=== PATIENT | female | born 1940 | race Caucasian/White ===

== ENCOUNTER 2024-03-15 07:19 | Emergency (ER) | payer OTHER ==
[~2024-03-15] VITALS: Ht 165.1 cm; Wt 64.2 kg
[~2024-03-15 07:19] MED LIST: ACET500T58 PO; LEVO750T8 PO
[2024-03-15 08:10] LABS: Basophils # (auto) 0 10 ^3/uL (0-0.2); Basophils % (auto) 0.6 % (0.0-2.0); Eosinophils # (auto) 0 10 ^3/uL (0-0.8); Eosinophils % (auto) 0.5 % (0.0-7.0); Hematocrit 44.7 % (36.0-46.0); Hemoglobin 14.5 g/dL (12.2-16.2); Lymphocytes # (auto) 1.7 10 ^3/uL (0.4-5.4); Lymphocytes % (auto) 20.8 % (10.0-50.0); Mean Corpuscular Volume 88.4 fL (80.0-100.0); Monocytes # (auto) 0.6 10 ^3/uL (0-1.3); Monocytes % (auto) 6.9 % (0.0-12.0); Neutrophils # (auto) 5.8 10 ^3/uL (1.6-8.6); Neutrophils % (auto) 71.2 % (37.0-80.0); Nucleated Red Blood Cells % 0.1 %; Red Blood Cells 5.05 10^6/uL (4.0-5.20); White Blood Cell 8.2 10^3/uL (4.4-10.8)
[2024-03-15 08:11] LABS: Mean Corpuscular Hemoglobin 28.8 pg (28.0-32.0); Mean Corpuscular Hgb Conc. 32.5 g/dL (32.0-36.0); Red Cell Distribution Width 13.8 % (11.8-14.3)
[2024-03-15] MEDS: ONDANSETRON ODT 4 MG TAB PO ONE (08:11)
[2024-03-15 08:25] LABS: Alanine Aminotransferase 15 U/L (7-40); Albumin 4.7 g/dL (3.2-4.8); Alkaline Phosphatase 85 U/L (46-116); Anion Gap 7 (5-15); Aspartate Aminotransferase 26 U/L (13-40); BUN/Creatinine Ratio 8.8 (10.0-20.0); Bilirubin, Total 0.8 mg/dL (0.2-1.0); Blood Urea Nitrogen 7 mg/dL (9-23); Calcium 10.1 mg/dL (8.5-10.1); Carbon Dioxide 27 mmol/L (20-30); Chloride 103 mmol/L (98-107); Glucose 133 mg/dL (74-106); Sodium 137 mmol/L (136-145); Total Protein 7.5 g/dL (5.7-8.2)
[2024-03-15] MEDS ORDERED: IOHEXOL 300 MG/ML 100ML BOTTLE IJ ONE (08:47)
[2024-03-15 08:50] LABS: Lipase 45 U/L (12-53)
[2024-03-15 09:15] VITALS: PULSE 71; RESP 18; O2SAT 93
[2024-03-15 09:19] VITALS: TEMP 98.4
[2024-03-15 10:00] VITALS: BP 164/48; PULSE 65; RESP 16; O2SAT 93
[2024-03-15 11:00] LABS: Urine Bacteria None Seen /hpf (None Seen)
[2024-03-15 11:08] LABS: Urine Blood Negative /uL (Negative); Urine Clarity Clear (Clear); Urine Color Light-Yellow (Yellow); Urine Protein, UAD TRACE (Negative); Urine Urobilinogen Normal (Negative); Urine WBC 8 /hpf (0 - 5)
[2024-03-15 11:17] LABS: Urine Specific Gravity 1.0355 (1.001-1.035)
[2024-03-15] MEDS ORDERED: DICY10CA PO (11:24)
[2024-03-15] MEDS ORDERED: ZOFR4T PO (11:24)
[2024-03-15] MEDS ORDERED: DOXY1CAP57 PO (11:24)
== END 2024-03-15 12:12 | disposition home or self-care (01) ==
LOC: ER 07:19
DX: K62.89 Other specified diseases of anus and rectum (principal); R10.13 Epigastric pain; I10 Essential (primary) hypertension; Z88.8 Allergy status to other drugs, medicaments and biological substances; Z79.899 Other long term (current) drug therapy
CPT/HCPCS: 36415; 74177; 80053; 81001; 83605; 83690; 83735; 85025; 93005; 99285; Q0162; Q9967

== ENCOUNTER → 2024-03-19 | Outpatient (CLI) | payer OTHER ==
[~2024-03-19] MED LIST changes: +DICY10CA PO; +DOXY1CAP57 PO; +ZOFR4T PO
[2024-03-19 07:54] LABS: Urine Bacteria None Seen /hpf (None Seen)
[2024-03-19 08:05] LABS: Basophils # (auto) 0 10 ^3/uL (0-0.2); Basophils % (auto) 0.6 % (0.0-2.0); Eosinophils # (auto) 0.1 10 ^3/uL (0-0.8); Eosinophils % (auto) 0.9 % (0.0-7.0); Hematocrit 41.8 % (36.0-46.0); Lymphocytes # (auto) 1.4 10 ^3/uL (0.4-5.4); Lymphocytes % (auto) 23.4 % (10.0-50.0); Mean Corpuscular Hemoglobin 29.6 pg (28.0-32.0); Mean Corpuscular Hgb Conc. 33.5 g/dL (32.0-36.0); Mean Corpuscular Volume 88.3 fL (80.0-100.0); Monocytes # (auto) 0.6 10 ^3/uL (0-1.3); Monocytes % (auto) 9.3 % (0.0-12.0); Neutrophils % (auto) 65.8 % (37.0-80.0); Nucleated Red Blood Cells % 0.1 %; Red Blood Cells 4.74 10^6/uL (4.0-5.20); Red Cell Distribution Width 13.8 % (11.8-14.3); White Blood Cell 6.1 10^3/uL (4.4-10.8)
[2024-03-19 08:08] LABS: Urine Blood Negative /uL (Negative); Urine Clarity Clear (Clear); Urine Color Colorless (Yellow); Urine Protein, UAD Negative (Negative); Urine Specific Gravity 1.005 (1.001-1.035); Urine Urobilinogen Normal (Negative); Urine WBC <1 /hpf (0 - 5)
[2024-03-19 08:48] LABS: Alanine Aminotransferase 16 U/L (7-40); Albumin 4.5 g/dL (3.2-4.8); Alkaline Phosphatase 85 U/L (46-116); Anion Gap 6 (5-15); Aspartate Aminotransferase 22 U/L (13-40); BUN/Creatinine Ratio 7.7 (10.0-20.0); Blood Urea Nitrogen 6 mg/dL (9-23); Carbon Dioxide 27 mmol/L (20-30); Chloride 102 mmol/L (98-107); Cholesterol 174 mg/dL (< 200); Glucose 112 mg/dL (74-106); LDL Cholesterol 91 mg/dL (< 100); Potassium 4.2 mmol/L (3.5-5.1); Sodium 135 mmol/L (136-145); Triglycerides 115 mg/dL (< 150)
[2024-03-19 08:49] LABS: Bilirubin, Total 0.8 mg/dL (0.2-1.0); HDL Cholesterol 66 mg/dL (40-59)
[2024-03-19 08:57] LABS: Folate (Folic Acid) > 24.00 ng/mL (>5.38)
[2024-03-19 09:12] LABS: Magnesium 2.2 mg/dL (1.6-2.6)
== END | disposition home or self-care (01) ==
LOC: LAB 07:41
PROVIDERS: ATTEND Internal Medicine
DX: E55.9 Vitamin D deficiency, unspecified (principal); E79.0 Hyperuricemia without signs of inflammatory arthritis and tophaceous disease; R82.79 Other abnormal findings on microbiological examination of urine; R82.90 Unspecified abnormal findings in urine; D51.9 Vitamin B12 deficiency anemia, unspecified; R73.09 Other abnormal glucose; R94.6 Abnormal results of thyroid function studies; R94.4 Abnormal results of kidney function studies; R68.89 Other general symptoms and signs; R78.89 Finding of other specified substances, not normally found in blood
CPT/HCPCS: 36415; 80053; 80061; 81001; 82306; 82607; 82746; 83036; 83735; 84443; 84550; 85025; 87086

== ENCOUNTER → 2024-03-26 | Outpatient (CLI) | payer OTHER | END | disposition home or self-care (01) | LOC: LAB 12:14 | PROVIDERS: ATTEND Internal Medicine | DX: Z12.11 Encounter for screening for malignant neoplasm of colon (principal); E79.0 Hyperuricemia without signs of inflammatory arthritis and tophaceous disease; D51.9 Vitamin B12 deficiency anemia, unspecified; R82.90 Unspecified abnormal findings in urine; R82.79 Other abnormal findings on microbiological examination of urine; R94.6 Abnormal results of thyroid function studies; R73.09 Other abnormal glucose | CPT/HCPCS: 82270 ==

== ENCOUNTER 2024-07-05 16:00 | Inpatient (IN) | payer OTHER ==
[~2024-07-05] VITALS: Ht 165.1 cm; Wt 67.7 kg
[2024-07-05 17:11] LABS: Basophils # (auto) 0 10 ^3/uL (0-0.2); Basophils % (auto) 0.4 % (0.0-2.0); Eosinophils # (auto) 0 10 ^3/uL (0-0.8); Eosinophils % (auto) 0.1 % (0.0-7.0); Hematocrit 40.3 % (36.0-46.0); Hemoglobin 13.5 g/dL (12.2-16.2); Lymphocytes # (auto) 1.6 10 ^3/uL (0.4-5.4); Mean Corpuscular Hemoglobin 29.4 pg (28.0-32.0); Mean Corpuscular Hgb Conc. 33.4 g/dL (32.0-36.0); Mean Corpuscular Volume 88.1 fL (80.0-100.0); Monocytes # (auto) 0.6 10 ^3/uL (0-1.3); Monocytes % (auto) 7.3 % (0.0-12.0); Neutrophils # (auto) 5.9 10 ^3/uL (1.6-8.6); Neutrophils % (auto) 72.2 % (37.0-80.0); Platelet Count (auto) 263 10^3/uL (140-450); Red Blood Cells 4.57 10^6/uL (4.0-5.20); Red Cell Distribution Width 14.9 % (11.8-14.3); White Blood Cell 8.1 10^3/uL (4.4-10.8)
[2024-07-05] MEDS: MORPHINE SULFATE 4 MG/ML SYR/VIAL IV ONE (17:25)
[2024-07-05] MEDS: ONDANSETRON HCL 4 MG/2 ML VIAL IV ONE (17:25)
[2024-07-05 17:32] LABS: Alanine Aminotransferase 15 U/L (7-40); Alkaline Phosphatase 67 U/L (46-116); Anion Gap 7 (5-15); Aspartate Aminotransferase 23 U/L (13-40); BUN/Creatinine Ratio 8.1 (10.0-20.0); Blood Urea Nitrogen 6 mg/dL (9-23); Calcium 9.3 mg/dL (8.7-10.4); Carbon Dioxide 21 mmol/L (20-30); Chloride 100 mmol/L (98-107); Glucose 134 mg/dL (74-106); Potassium 3.8 mmol/L (3.5-5.1); Sodium 128 mmol/L (136-145)
[2024-07-05 17:33] LABS: Albumin 4.2 g/dL (3.2-4.8); Bilirubin, Total 0.7 mg/dL (0.2-1.0); Total Protein 6.8 g/dL (5.7-8.2)
[2024-07-05] MEDS: IOHEXOL 300 MG/ML 100ML BOTTLE IJ ONE (18:14)
[2024-07-05 18:50] VITALS: PULSE 77; RESP 18; O2SAT 98
[2024-07-05 19:30] VITALS: PULSE 78; RESP 18
[2024-07-05] MEDS: SODIUM CHLORIDE 0.9% 1,000 ML IV ONE (20:04)
[2024-07-05 20:42] LABS: Urine Bacteria None Seen /hpf (None Seen)
[2024-07-05 21:46] LABS: Urine Blood Negative /uL (Negative); Urine Clarity Clear (Clear); Urine Color Yellow (Yellow); Urine Protein, UAD Negative (Negative); Urine Specific Gravity 1.043 (1.001-1.035); Urine Urobilinogen Normal (Negative); Urine WBC <1 /hpf (0 - 5); Urine pH 6.5 (5.0-9.0)
[2024-07-05] MEDS ORDERED: ACETAMINOPHEN 325 MG TAB PO PRN (23:00)
[2024-07-05] MEDS ORDERED: DOCUSATE SOD 100 MG CAP PO PRN (23:00)
[2024-07-05] MEDS: SODIUM CHLORIDE 0.9% 1,000 ML IV SCH (23:02)
[2024-07-05] MEDS ORDERED: NITROGLYCERIN 0.4 MG SL TAB SL PRN (23:45)
[2024-07-06] VITALS (10 sets, daily range): BP systolic 110–185; BP diastolic 42–89; PULSE 75–92; RESP 16–21; TEMP 97.7–98.7; O2SAT 91–96
[2024-07-06] MEDS: HYDROcodone-ACET 5/325MG TAB PO PRN (00:23)
[2024-07-06] MEDS: ONDANSETRON HCL 4 MG/2 ML VIAL IV PRN (00:23)
[2024-07-06] MEDS: hydrALAZINE HCL 20 MG/ML VL IV PRN (00:36)
[2024-07-06] MEDS ORDERED: ESZO1TAB9 PO (03:10)
[2024-07-06] MEDS: MORPHINE SULFATE INJ 2 MG/ml SYRG IV PRN ×2 (03:40)
[2024-07-06 06:02] LABS: Basophils # (auto) 0 10 ^3/uL (0-0.2); Basophils % (auto) 0.4 % (0.0-2.0); Eosinophils # (auto) 0 10 ^3/uL (0-0.8); Eosinophils % (auto) 0.1 % (0.0-7.0); Hemoglobin 13.5 g/dL (12.2-16.2); Lymphocytes # (auto) 1.3 10 ^3/uL (0.4-5.4); Lymphocytes % (auto) 14.1 % (10.0-50.0); Mean Corpuscular Hemoglobin 30.1 pg (28.0-32.0); Mean Corpuscular Hgb Conc. 34.7 g/dL (32.0-36.0); Mean Corpuscular Volume 86.6 fL (80.0-100.0); Monocytes # (auto) 0.7 10 ^3/uL (0-1.3); Neutrophils # (auto) 7.4 10 ^3/uL (1.6-8.6); Neutrophils % (auto) 78.4 % (37.0-80.0); Platelet Count (auto) 249 10^3/uL (140-450); Red Cell Distribution Width 14.5 % (11.8-14.3); White Blood Cell 9.4 10^3/uL (4.4-10.8)
[2024-07-06 06:22] LABS: Alanine Aminotransferase 15 U/L (7-40); Alkaline Phosphatase 62 U/L (46-116); Anion Gap 7 (5-15); Aspartate Aminotransferase 22 U/L (13-40); Bilirubin, Total 1.1 mg/dL (0.2-1.0); Calcium 8.8 mg/dL (8.7-10.4); Carbon Dioxide 21 mmol/L (20-30); Chloride 98 mmol/L (98-107); Glucose 118 mg/dL (74-106); Potassium 3.5 mmol/L (3.5-5.1); Sodium 126 mmol/L (136-145); Total Protein 6.5 g/dL (5.7-8.2)
[2024-07-06 06:32] LABS: BUN/Creatinine Ratio 8.5 (10.0-20.0); Blood Urea Nitrogen < 5 mg/dL (9-23)
[2024-07-06 07:45] LABS: Lipase 31 U/L (12-53)
[2024-07-06 08:13] LABS: Sodium Urine 40 mmol/L (40-220)
[2024-07-06 08:20] LABS: Amphetamine Screen, Urine Neg (NEGATIVE); Barbiturate Scree,Urine Neg (NEGATIVE); Benzodiazephine Screen, Urine Neg (NEGATIVE); Cannabinoid Screen, Urine Neg (NEGATIVE); Cocaine Screen, Urine Neg (NEGATIVE); Opiate Scree,Urine Pos (NEGATIVE); Phencyclidine Screen, Urine Neg (NEGATIVE)
[2024-07-06] MEDS: amLODIPine BESYLATE 5 MG TAB PO SCH (08:29)
[2024-07-06] MEDS: HYDROcodone-ACET 7.5/325MG TAB PO PRN (13:11)
[2024-07-06] MEDS ORDERED: HYDR-4069 PO (14:27)
[2024-07-06] MEDS ORDERED: ENOXAPARIN SOD 40 MG/0.4 ML SYRINGE SC ONE (17:15)
[2024-07-07 00:59] VITALS: BP 151/51; PULSE 71; RESP 18; TEMP 98.6; O2SAT 94
[2024-07-07 05:00] VITALS: BP 163/52; PULSE 85; RESP 18; TEMP 97.9; O2SAT 95
[2024-07-07 06:28] LABS: Basophils # (auto) 0 10 ^3/uL (0-0.2); Basophils % (auto) 0.4 % (0.0-2.0); Eosinophils # (auto) 0 10 ^3/uL (0-0.8); Eosinophils % (auto) 0.4 % (0.0-7.0); Hematocrit 40.1 % (36.0-46.0); Lymphocytes # (auto) 1.5 10 ^3/uL (0.4-5.4); Lymphocytes % (auto) 17.2 % (10.0-50.0); Mean Corpuscular Hemoglobin 30.5 pg (28.0-32.0); Mean Corpuscular Hgb Conc. 34.9 g/dL (32.0-36.0); Mean Corpuscular Volume 87.4 fL (80.0-100.0); Monocytes % (auto) 10.9 % (0.0-12.0); Neutrophils # (auto) 6.3 10 ^3/uL (1.6-8.6); Neutrophils % (auto) 71.1 % (37.0-80.0); Platelet Count (auto) 243 10^3/uL (140-450); Red Blood Cells 4.59 10^6/uL (4.0-5.20); Red Cell Distribution Width 14.5 % (11.8-14.3); White Blood Cell 8.8 10^3/uL (4.4-10.8)
[2024-07-07 06:40] LABS: Anion Gap 7 (5-15); Carbon Dioxide 23 mmol/L (20-30); Chloride 104 mmol/L (98-107); Potassium 3.5 mmol/L (3.5-5.1)
[2024-07-07 06:41] LABS: Calcium 9.2 mg/dL (8.7-10.4)
[2024-07-07 06:46] LABS: BUN/Creatinine Ratio 9.8 (10.0-20.0); Blood Urea Nitrogen 6 mg/dL (9-23); Glucose 103 mg/dL (74-106)
[2024-07-07 06:51] LABS: Sodium 134 mmol/L (136-145)
[2024-07-07 08:10] VITALS: PULSE 73; RESP 17; O2SAT 94
[2024-07-07] MEDS: ENOXAPARIN SOD 40 MG/0.4 ML SYRINGE SC SCH (08:30)
[2024-07-07 08:33] VITALS: BP 171/58; PULSE 77; RESP 20; TEMP 97.9; O2SAT 90
[2024-07-07] MEDS ORDERED: LISINOPRIL 5 MG TAB PO SCH (10:00)
[2024-07-07] MEDS ORDERED: LEVO750T40 PO (12:24)
[2024-07-07] MEDS ORDERED: LISI10TA34 PO (12:24)
[2024-07-07] MEDS ORDERED: MET500T PO (12:24)
[2024-07-07] MEDS ORDERED: AMLO1TAB22 PO (12:24)
[2024-07-07 12:29] VITALS: BP 181/68; PULSE 88; RESP 20; TEMP 97.8; O2SAT 92
[2024-07-07 13:40] VITALS: BP 181/68; PULSE 88; RESP 20; TEMP 97.8; O2SAT 92
== END 2024-07-07 14:27 | disposition home or self-care (01) | DRG 394 ==
LOC: ER 16:00 → OVERFLOW 23:34 → TELE 07-06 01:07 → TELE-CENTR 07-06 02:39
PROVIDERS: ATTEND Internal Medicine
DX: K55.9 Vascular disorder of intestine, unspecified (principal); E87.1 Hypo-osmolality and hyponatremia; I71.43 Infrarenal abdominal aortic aneurysm, without rupture; I16.0 Hypertensive urgency; R73.9 Hyperglycemia, unspecified; E86.1 Hypovolemia; Z79.899 Other long term (current) drug therapy
CPT/HCPCS: 36415; 74177; 80048; 80053; 80307; 81001; 83605; 83690; 83880; 83930; 83935; 84300; 85025; 93306; G0378; J2405

== ENCOUNTER 2024-07-19 10:01 | Day surgery (SDC) | payer OTHER ==
[2024-07-17 11:56] LABS: Basophils # (auto) 0 10 ^3/uL (0-0.2); Basophils % (auto) 0.6 % (0.0-2.0); Eosinophils # (auto) 0 10 ^3/uL (0-0.8); Eosinophils % (auto) 0.6 % (0.0-7.0); Hematocrit 39.9 % (36.0-46.0); Hemoglobin 13.6 g/dL (12.2-16.2); Lymphocytes # (auto) 1.2 10 ^3/uL (0.4-5.4); Lymphocytes % (auto) 17.7 % (10.0-50.0); Mean Corpuscular Volume 88.1 fL (80.0-100.0); Monocytes # (auto) 0.7 10 ^3/uL (0-1.3); Monocytes % (auto) 11.3 % (0.0-12.0); Neutrophils # (auto) 4.6 10 ^3/uL (1.6-8.6); Neutrophils % (auto) 69.8 % (37.0-80.0); Platelet Count (auto) 267 10^3/uL (140-450); Red Blood Cells 4.53 10^6/uL (4.0-5.20); Red Cell Distribution Width 14.8 % (11.8-14.3); White Blood Cell 6.6 10^3/uL (4.4-10.8)
[2024-07-17 12:19] LABS: Alanine Aminotransferase 33 U/L (7-40); Albumin 4.3 g/dL (3.2-4.8); Alkaline Phosphatase 64 U/L (46-116); Anion Gap 5 (5-15); Aspartate Aminotransferase 31 U/L (13-40); Blood Urea Nitrogen 9 mg/dL (9-23); Calcium 9.7 mg/dL (8.7-10.4); Carbon Dioxide 26 mmol/L (20-30); Chloride 102 mmol/L (98-107); Glucose 104 mg/dL (74-106); Potassium 4.7 mmol/L (3.5-5.1); Sodium 133 mmol/L (136-145)
[2024-07-17 12:20] LABS: Bilirubin, Total 0.6 mg/dL (0.2-1.0); Total Protein 6.8 g/dL (5.7-8.2)
[2024-07-17 12:36] LABS: INR 1.05 (0.9-1.15); Partial Thromboplastin Time 26.9 SEC (24.5-34.5); Prothrombin Time 11.3 sec (9.3-11.8)
[2024-07-18 09:44] LABS: Urine Bacteria None Seen /hpf (None Seen)
[2024-07-18 10:18] LABS: Urine Blood Negative /uL (Negative); Urine Clarity Clear (Clear); Urine Color Colorless (Yellow); Urine Protein, UAD Negative (Negative); Urine Specific Gravity 1.004 (1.001-1.035); Urine Urobilinogen Normal (Negative); Urine WBC 2 /hpf (0 - 5)
[~2024-07-19] VITALS: Ht 165.1 cm; Wt 61.7 kg
[~2024-07-19 10:01] MED LIST changes: +AMLO1TAB22 PO; -DOXY1CAP57 PO; +ESZO1TAB9 PO; -LEVO750T8 PO; +LISI10TA34 PO; +MET500T PO; +OMEP20TA PO; -ZOFR4T PO; +ZOLP10TA PO
[2024-07-19] MEDS ORDERED: ONDANSETRON HCL 4 MG/2 ML VIAL IV ONE (10:02)
[2024-07-19] MEDS ORDERED: PROPOFOL 10 MG/ML 20 ML IV ONE (10:02)
[2024-07-19] MEDS ORDERED: LIDOCAINE HCL 100 MG/5ML (2%) SYRG INJ IV ONE (11:24)
[2024-07-19 11:31] VITALS: PULSE 74; RESP 10; TEMP 97.8; O2SAT 100
[2024-07-19] MEDS ORDERED: hydrALAZINE HCL 20 MG/ML VL IV PRN (11:45)
[2024-07-19 12:07] VITALS: BP 150/54; PULSE 82; RESP 19; O2SAT 98
== END 2024-07-19 12:20 | disposition home or self-care (01) ==
LOC: GI 10:01
PROVIDERS: ATTEND Internal Medicine Gastroenterology
DX: R10.13 Epigastric pain (principal); K29.50 Unspecified chronic gastritis without bleeding; K44.9 Diaphragmatic hernia without obstruction or gangrene; K21.00 Gastro-esophageal reflux disease with esophagitis, without bleeding; Z88.8 Allergy status to other drugs, medicaments and biological substances; K31.7 Polyp of stomach and duodenum; I10 Essential (primary) hypertension; Z79.899 Other long term (current) drug therapy; Z98.890 Other specified postprocedural states; Z90.710 Acquired absence of both cervix and uterus; Z90.49 Acquired absence of other specified parts of digestive tract
CPT/HCPCS: 36415; 43239; 80053; 81001; 85025; 85610; 85730; 88305; 88312; 88342; J2405; J2704; J7030

== ENCOUNTER 2024-09-25 14:54 | Emergency (ER) | payer OTHER ==
[~2024-09-25] VITALS: Ht 167.6 cm; Wt 60.0 kg
[2024-09-25 15:50] VITALS: BP 150/71; PULSE 95; RESP 16; O2SAT 95
--- NOTE | 2024-09-25 16:26 | ED.PDOC ---
Jonna. trauma (HPI) HPI Comments 84 year old female presents to the ED with chief complaint of headache and neck pain s/p fall. Patient reports that on 08/24, she had accidentally tripped and fell backwards, hitting the back of her head on the tile floor in her home. Patient relays that since then, he has been experiencing pain to the back of his head along with neck pain. Patient states she did not tell her family to not worry them, but wishes to be checked out today due to her symptoms. Patient denies being on blood thinners. Patient denies any LOC, dizziness, N/V, chest pain, or SOB. Chief Complaint: Head Injury Time Seen by MD: 16:22 Primary Care Provider: unknown Reviewed notes: Nurses Notes, Medications, Allergies Allergies: Coded Allergies: Gabapentin (Verified Allergy, Unknown, 11/17/23) Home Meds Active Scripts Amlodipine Besylate (Amlodipine Besylate) 5 Mg Tab, 1 TAB PO DAILY for 30 Days, #30 TAB 5 Refills Prov:CATHERINE WILLIAMSON RESIDENT 07/07/24 Lisinopril (Lisinopril) 10 Mg Tab, 10 MG PO DAILY for 30 Days, #30 TAB Prov:CATHERINE WILLIAMSON RESIDENT 07/07/24 Metronidazole (Metronidazole) 500 Mg Tab, 500 MG PO TID for 10 Days, #30 TAB Prov:CATHERINE WILLIAMSON RESIDENT 07/07/24 Dicyclomine Hcl (BENTYL CAPSULE) 10 Mg Cp, 1 CAP PO Q6HR PRN, #20 CAP 0 Refills Prov:SHIVANI LAMAR MD 03/15/24 Acetaminophen (Acetaminophen) 500 Mg Tab, 500 MG PO Q4HP PRN, #30 TAB Prov:ANTONIO KOROMA 08/21/23 Reported Medications Omeprazole (Gnp Omeprazole) 20 Mg Tab, 20 MG PO AC, TAB 07/18/24 Zolpidem Tartrate (Ambien) 10 Mg Tab, 5 MG PO HS, TAB 07/18/24 Eszopiclone (Lunesta) 1 Mg Tab, 1 MG PO, TAB 07/06/24 Information Source: Patient Mode of Arrival: Ambulatory Severity: Moderate Timing: Weeks Duration: Since onset Prehospital treatment: None Location: Head, Neck Location of neck pain: (R) Medial, (L) Medial Location of laceration: None Mechanism: Fall Past Medical History PAST MEDICAL HISTORY: HTN Surgical History: Denies all surgeries DIRECTOR BUSINESS MANAGEMENT History: Denies all DIRECTOR BUSINESS MANAGEMENT Hx Family History Family History: Unknown Social History Smoker: Non-Smoker Alcohol: Denies ETOH Use Drugs: Denies Drug Use Lives In: Home Constitutional: denies: chills, diaphoresis, fatigue, fever, malaise, sweats, weakness, others EENTM: denies: blurred vision, double vision, ear bleeding, ear discharge, ear drainage, ear pain, ear ringing, eye pain, eye redness, hearing loss, mouth pain, mouth swelling, nasal discharge, nose bleeding, nose congestion, nose pain, photophobia, tearing, throat pain, throat swelling, voice changes, others Respiratory: denies: cough, hemoptysis, orthopnea, SOB at rest, shortness of breath, SOB with excertion, stridor, wheezing, others Cardiovascular: denies: chest pain, dizzy spells, diaphoresis, Dyspnea on exertion, edema, irregular heart beat, left arm pain, lightheadedness, palpitations, PND, syncope, others Gastrointestinal: denies: abdomen distended, abdominal pain, blood streaked bowels, constipated, diarrhea, dysphagia, difficulty swallowing, hematemesis, melena, nausea, poor appetite, poor fluid intake, rectal bleeding, rectal pain, vomiting, others Genitourinary: denies: abnormal vagina bleeding, burning, dyspareunia, dysuria, flank pain, frequency, hematuria, incontinence, pain, , vagina discharge, urgency, others Neurological: denies: dizziness, fainting, headache, left sided numbness, left sided weakness, numbness, paresthesia, pre-existing deficit, right sided numbnes s, right sided weakness, seizure, speech problems, tingling, tremors, weakness, others Musculoskeletal: reports: neck pain, others (Back of head pain); denies: back pain, gout, joint pain, joint swelling, muscle pain, muscle stiffness Integumetry: denies: bruises, change in color, change in hair/nails, dryness, laceration, lesions, lumps, rash, wounds, others Allergic/Immunocompromised: denies: Difficulty Healing, Frequent Infections, Hives, Itching, others Hematologic/Lymphatic: denies: anemia, blood clots, easy bleeding, easy bruising, swollen glands, others Endocrine: denies: excessive hunger, excessive sweating, excessive thirst, excessive urination, flushing, intolerance to cold, intolerance to heat, unexplained weight gain, unexplained weight loss, others Psychiatric: denies: anxiety, bipolar disorder, depression, hopeless, panic di sorder, schizophrenia, sleepless, suicidal, others All Other Systems: Reviewed and Negative Physical Exam General Appearance: No Apparent Distress, Normal HEENT: Normal ENT Inspection, Other (Mild tenderness to occipital scalp with no laceration or abrasion.) Neck: Full Range of Motion, Non-Tender, Normal, Normal Inspection Respiratory: Chest Non-Tender, Lungs Clear, No Accessory Muscle Use, No Respiratory Distress, Normal Breath Sounds Cardiovascular: No Edema, No JVD, No Murmur, No Gallop, Normal Peripheral Pulses, Regular Rate/Rhythm Breast Exam: Deferred Gastrointestinal: No Organomegaly, Non Tender, No Pulsatile Mass, Normal Bowel Sounds, Soft Genitalia: Deferred Pelvic: Deferred Rectal: Deferred Extremities: No calf tenderness, Normal capillary refill, Normal inspection, Normal range of motion, Non-tender, No pedal edema Musculoskeletal : Apperance: Normal Neurologic: Alert, health program manager II-XII nml as Tested, No Motor Deficits, Normal Affect, Normal Mood, No Sensory Deficits Cerebellar Function: Normal Reflexes: Normal Skin: Dry, Normal Color, Warm Lymphatic: No Adenopathy Was a procedure done? Was a procedure done?: No Differential Diagnosis Multiple Trauma: Closed Head Injury, Fractures, Spine Injury, Tracheal Injury X-Ray, Labs, Meds, VS Vital Signs Date Time Temp Pulse Resp B/P (MAP) Pulse Ox O2 Delivery O2 Flow Rate FiO2 09/25/24 15:50 98.3 95 16 150/71 (97) 95 X-Ray, Labs, Meds, VS Comment Imaging: X-rays and CT scans were reviewed and interpreted by this provider, imaging shows no fractures and no pathological disease. Pending radiology review. Laboratory: Labs reviewed and interpreted by this provider. No significant abnormalities noted. Patient has prior medical visits reviewed. Med reconciliation performed Vital signs reviewed Time of 1ST Reevaluation: 17:22 Reevaluation 1ST: Unchanged Patient Education/Counseling: Diagnosis, Treatment, Need For Follow Up (Recommend follow up with PCP for nodule as dictated in CT scan.) Family Education/Counseling: No Family Present Departure 1 Departure Time of Disposition: 17:40 Impression: Primary Impression: Closed head injury Qualified Codes: S09.90XA - Unspecified injury of head, initial encounter Additional Impressions: Post-concussion headache Thyroid nodule Disposition: HOME / SELF CARE / HOMELESS Condition: Fair Discharged With: Self Critical Care Note Critical Care Time?: No Stability Stability form required: No Heart Score Heart Score: Heart Score Response (Comments) Value History N/A 0 EKG N/A 0 Age N/A 0 Risk Factors N/A 0 Troponin N/A 0 Total 0 I personally scribed for JACQUES GOMEZ ([email or web address]) on 09/25/24 at 16:26. Electronically submitted by Estevan Saul ([email or web address]). JACQUES GOMEZ Sep 25, 2024 16:26
--- NOTE | 2024-09-25 17:26 | DVH ---
EXAM: CT HEAD WITHOUT CONTRAST HISTORY: HEAD INJURY/FALL COMPARISON: None TECHNIQUE: Axial images were obtained and reformatted in coronal and sagittal planes. All CT scans at this medical facility are performed using dose modulation techniques as appropriate t o a performed exam including the following: Automated exposure control was utilized; adjustment of th e MA and/or KV according to patient size; and use of iterative reconstruction technique. CT Dose: CTDI volume is 53.99 mGy. Dose-length product is 863.9 mGy*cm FINDINGS: Supratentorial Region: No evidence for large acute territorial ischemia. No intracranial hemorrhage is noted. Posterior Fossa: No acute abnormality. Brainstem: Unremarkable. Sellar/Suprasellar Region: Unremarkable. Ventricles, Cisterns, Sulci: Age-appropriate. Orbits: Unremarkable. Paranasal Sinuses: Unremarkable. Mastoid Air Cells: Unremarkable. Vasculature: Intracranial arterial calcified plaque formation noted. Bones/Soft Tissues: No acute abnormality. Other: None. IMPRESSION: 1. No acute intracranial process.
--- NOTE | 2024-09-25 17:31 | DVH ---
Procedure: CT CERVICAL WITHOUT CONTRAST 09/25/2024 04:31 PM Indication:HEAD INJURY/FALL. Comparison Study: None. Technique: Axial images were obtained and reformatted in coronal and sagittal planes. All CT scans at this medical facility are performed using dose modulation techniques as appropriate t o a performed exam including the following: Automated exposure control was utilized; adjustment of th e MA and/or KV according to patient size; and use of iterative reconstruction technique. CT Dose: CTDI volume is 15.93 mGy. Dose-length product is 400.32 mGy*cm FINDINGS: Bones: The vertebrae are normal in height. 2 mm degenerative grade 1 anterolisthesis of C3 on C4 and C4 on C5 noted . Lateral masses C1 and C2 are well aligned. The posterior facet joints are well alig devi. Narrowing of C3-C5 disc height. Discogenic endplate changes are seen at several levels. A 5 mm lucency noted in C6 vertebral body Soft tissues: Paraspinal and prevertebral soft tissues are within normal limits. Other: Emphysematous changes are seen in bilateral apices. Pulmonary opacities in the dependent port ions of the lungs that may represent atelectasis or developing pneumonia. Atherosclerotic calcificati on of the bilateral carotid bulbs noted. A 2 cm nodule seen in the upper pole of the left lobe of the thyroid. IMPRESSION: 1. Straightening of normal lordosis that could be positional, reflect muscle spasm or pain. Correlate clinically. 2. No acute osseous abnormality of the cervical spine. 3. Multilevel degenerative disc disease noted. 4. A 2 cm right thyroid lobe nodule. Recommend further evaluation by thyroid ultrasound on an electi ve basis. 5. Bilateral carotid atherosclerotic calcifications. 6. Emphysema and biapical pulmonary opacities most likely atelectasis. Developing pneumonia can not be ruled out. Recommend clinical and biochemical correlation.
== END 2024-09-25 20:25 | disposition left against medical advice (07) ==
LOC: ER 14:54
DX: S09.8XXA Other specified injuries of head, initial encounter (principal); G44.309 Post-traumatic headache, unspecified, not intractable; E04.1 Nontoxic single thyroid nodule; I10 Essential (primary) hypertension; Z79.899 Other long term (current) drug therapy; Z88.8 Allergy status to other drugs, medicaments and biological substances; W01.0XXA Fall on same level from slipping, tripping and stumbling without subsequent striking against object, initial encounter; Y93.89 Activity, other specified; Y92.89 Other specified places as the place of occurrence of the external cause; Y99.8 Other external cause status
CPT/HCPCS: 70450; 72125

== ENCOUNTER 2025-01-24 11:30 | Inpatient (IN) | payer OTHER ==
[~2025-01-24] VITALS: Ht 165.1 cm; Wt 59.7 kg
[2025-01-24] VITALS (7 sets, daily range): BP systolic 150; BP diastolic 48; PULSE 72–89; RESP 15–20; TEMP 98.1; O2SAT 91–96
--- NOTE | 2025-01-24 11:57 | ECG ---
[facility] Test Date: 2025-01-24 Test Time: 11:50:57 Pat Name: EDWARD CASTILLO Department: ER Room: [facility] Gender: F Fruit Packer Face [employer] Fill: COLTON : 1940 Requested By: BIRD PATEL Order Number: [id number] Reading MD: Luis Eduardo Enciso Measurements Intervals Leland Rate: 72 P: 48 GA: 153 QRS: 15 QRSD: 86 T: 57 QT: 400 QTc: 438 Interpretive Statements Sinus rhythm Atrial premature complexes Electronically Signed On 01-25-2025 19:16:05 PDT by Luis Eduardo Enciso Please click the below link to view image of tracing.
--- NOTE | 2025-01-24 12:24 | ED.PDOC ---
Musculoskeletal HPI Comments 84Y F with PMHx HTN, HLD, vertigo, diverticulitis, and colectomy (2021), presents to ED for chief complaint fall. Pt reports rt sided lateral chest/rib pain and rt inguinal and medial thigh pain. Pt states she fell last night after getting up too fast and landed on her right side on grass. Pt denies LOC, head injury or dizziness. Pt reports difficulty weight-bearing on the right lower extremity due to pain. Pt took a Tylenol-codeine medication this morning at 0730 but symptoms did not improve. No other symptoms reported. Chief Complaint: Fall Injury Time Seen by MD: 12:10 Primary Care Provider: unknown Reviewed Notes: Nurses Notes, Medications, Allergies Allergies: Coded Allergies: Gabapentin (Verified Allergy, Unknown, 11/17/23) Home Meds Active Scripts Amlodipine Besylate (Amlodipine Besylate) 5 Mg Tab, 1 TAB PO DAILY for 30 Days, #30 TAB 5 Refills Prov:CATHERINE WILLIAMSON RESIDENT 07/07/24 Lisinopril (Lisinopril) 10 Mg Tab, 10 MG PO DAILY for 30 Days, #30 TAB Prov:CATHERINE WILLIAMSON RESIDENT 07/07/24 Metronidazole (Metronidazole) 500 Mg Tab, 500 MG PO TID for 10 Days, #30 TAB Prov:CATHERINE WILLIAMSON RESIDENT 07/07/24 Dicyclomine Hcl (BENTYL CAPSULE) 10 Mg Cp, 1 CAP PO Q6HR PRN, #20 CAP 0 Refills Prov:SHIVANI LAMAR MD 03/15/24 Acetaminophen (Acetaminophen) 500 Mg Tab, 500 MG PO Q4HP PRN, #30 TAB Prov:ANTOINO KOROMA PAC 08/21/23 Reported Medications Omeprazole (Gnp Omeprazole) 20 Mg Tab, 20 MG PO AC, TAB 07/18/24 Zolpidem Tartrate (Ambien) 10 Mg Tab, 5 MG PO HS, TAB 07/18/24 Eszopiclone (Lunesta) 1 Mg Tab, 1 MG PO, TAB 07/06/24 Information Source: Patient, Relative (Child) Mode of Arrival: Wheelchair Location: Right Extremity Location: Chest, Groin, Thigh Timing: Days Prehospital treatment: None Severity: Moderate Able to Move Extremity: Yes Bear Weight: Limited Pain: Moderate Mechanism: Unknown Circumstances: Fall Onset of Symptoms: After Trauma Symptoms: Pain DVT Risk Factors: NONE Associated signs and symptoms: Other Past Medical History PAST MEDICAL HISTORY: High Lipids, HTN Past Medical History (Other): Diverticulitis Surgical History (Other): Colectomy 2021 CATEGORY DEVELOPMENT MANAGER History: Denies all CATEGORY DEVELOPMENT MANAGER Hx Family History Family History: Unknown Social History Smoker: Non-Smoker, Secondhand Alcohol: Denies ETOH Use Drugs: Denies Drug Use Lives In: Home Constitutional: denies: chills, diaphoresis, fatigue, fever, malaise, sweats, weakness, others EENTM: denies: blurred vision, double vision, ear bleeding, ear discharge, ear drainage, ear pain, ear ringing, eye pain, eye redness, hearing loss, mouth pain, mouth swelling, nasal discharge, nose bleeding, nose congestion, nose pain, photophobia, tearing, throat pain, throat swelling, voice changes, others Respiratory: denies: cough, hemoptysis, orthopnea, SOB at rest, shortness of breath, SOB with excertion, stridor, wheezing, others Cardiovascular: denies: chest pain, dizzy spells, diaphoresis, Dyspnea on exertion, edema, irregular heart beat, left arm pain, lightheadedness, palpitations, PND, syncope, others Gastrointestinal: denies: abdomen distended, abdominal pain, blood streaked bowels, constipated, diarrhea, dysphagia, difficulty swallowing, hematemesis, melena, nausea, poor appetite, poor fluid intake, rectal bleeding, rectal pain, vomiting, others Genitourinary: denies: abnormal vagina bleeding, burning, dyspareunia, dysuria, flank pain, frequency, hematuria, incontinence, pain, , vagina discharge, urgency, others Neurological: denies: dizziness, fainting, headache, left sided numbness, left sided weakness, numbness, paresthesia, pre-existing deficit, right sided numbness, right sided weakness, seizure, speech problems, tingling, tremors, weakness, others Musculoskeletal: reports: others (rt rib pain, rt inner thigh pain); denies: back pain, gout, joint pain, joint swelling, muscle pain, muscle stiffness, neck pain Integumetry: denies: bruises, change in color, change in hair/nails, dryness, laceration, lesions, lumps, rash, wounds, others Allergic/Immunocompromised: denies: Difficulty Healing, Frequent Infections, Hives, Itching, others Hematologic/Lymphatic: denies: anemia, blood clots, easy bleeding, easy bruis ing, swollen glands, others Endocrine: denies: excessive hunger, excessive sweating, excessive thirst, exc essive urination, flushing, intolerance to cold, intolerance to heat, unexplained weight gain, unexplained weight loss, others Psychiatric: denies: anxiety, bipolar disorder, depression, hopeless, panic disorder, schizophrenia, sleepless, suicidal, others All Other Systems: Reviewed and Negative Physical Exam General Appearance: No Apparent Distress HEENT: PERRL/EOMI Neck: Full Range of Motion, Non-Tender, Normal Inspection, Supple Respiratory: Lungs Clear, No Accessory Muscle Use, No Respiratory Distress, Normal Breath Sounds, Other (Right lateral chest wall tenderness to palpation. No crepitus or bruising.) Cardiovascular: No Edema, No JVD, Regular Rate/Rhythm Breast Exam: Deferred Gastrointestinal: Non Tender, Soft Genitalia: Deferred Pelvic: Deferred Rectal: Deferred Extremities: Normal inspection, No pedal edema, Tender (Right inguinal area and medial thigh tenderness to palpation) Neurologic: Alert (Oriented x4), Normal Affect, Normal Mood, Other (Moves all extremities. No gross focal deficit.) Cerebellar Function: NOT DONE Reflexes: NOT DONE Skin: Dry, Normal Color, Warm Lymphatic: NOT DONE Was a procedure done? Was a procedure done?: No EKG EKG : Comments Sinus rhythm, rate 72, normal intervals, normal axis, incomplete right bundle- branch block, PACs, nonspecific T change Differential Diagnosis EXT Differential Diagnosis: Sprain, Contusion, Strain Other Differential Diagnosis Chest wall contusion, rib fracture, pulmonary contusion, cardiac contusion, hip contusion, pelvic or hip fracture, femur fracture, muscle strain, sprain, or other soft tissue injury, among others X-Ray, Labs, Meds, VS Vital Signs Date Time Temp Pulse Resp B/P (MAP) Pulse Ox O2 Delivery O2 Flow Rate FiO2 01/24/25 14:21 98.2 75 16 122/48 (72) 95 98.2 01/24/25 14:21 75 16 95 Room Air 01/24/25 12:00 84 20 96 Room Air* 0 21 01/24/25 11:50 98.5 73 18 115/79 (91) 97 98.5 01/24/25 11:50 72 Lab Test 01/24/25 13:44 01/24/25 12:50 01/24/25 11:45 Range/Units Troponin I High Sensitivity 3 L 3 L </=34 ng/L White Blood Count 10.3 4.4-10.8 10^3/uL Red Blood Count 4.62 4.0-5.20 10^6/uL Hemoglobin 13.5 12.2-16.2 g/dL Hematocrit 40.1 36.0-46.0 % Mean Corpuscular Volume 86.8 80.0-100.0 fL Mean Corpuscular Hemoglobin 29.3 28.0-32.0 pg Mean Corpuscular Hemoglobin Concent 33.8 32.0-36.0 g/dL Red Cell Distribution Width 14.8 H 11.8-14.3 % Platelet Count 225 140-450 10^3/uL Mean Platelet Volume 8.3 6.9-10.8 fL Neutrophils (%) (Auto) 85.1 H 37.0-80.0 % Lymphocytes (%) (Auto) 7.6 L 10.0-50.0 % Monocytes (%) (Auto) 7.1 0.0-12.0 % Eosinophils (%) (Auto) 0.0 0.0-7.0 % Basophils (%) (Auto) 0.2 0.0-2.0 % Neutrophils # (Auto) 8.7 H 1.6-8.6 10 ^3/uL Lymphocytes # (Auto) 0.8 0.4-5.4 10 ^3/uL Monocytes # (Auto) 0.7 0-1.3 10 ^3/uL Eosinophils # (Auto) 0 0-0.8 10 ^3/uL Basophils # (Auto) 0 0-0.2 10 ^3/uL Nucleated Red Blood Cells 0.1 % Sodium Level 130 L 136-145 mmol/L Potassium Level 4.0 3.5-5.1 mmol/L Chloride Level 98 98-107 mmol/L Carbon Dioxide Level 25 20-31 mmol/L Anion Gap 7 5-15 Blood Urea Nitrogen 10 9-23 mg/dL Creatinine 0.70 0.550-1.02 mg/dL Glomerular Filtration Rate Calc 86 >90 mL/min BUN/Creatinine Ratio 14.3 10.0-20.0 Serum Glucose 124 H 74-106 mg/dL Calcium Level 9.8 8.7-10.4 mg/dL B-Type Natriuretic Peptide 87.26 0-100 pg/mL POC Glucose 140 H 70-106 mg/dl Current Medications Medications (Trade) Dose Ordered Sig/Thee Route Start Time Stop Time Status Last Admin Acetaminophen/ Hydrocodone Bitart ([place] 10/325MG Tab) 1 tab ONCE ONCE PO 01/24/25 12:15 01/24/25 12:16 DC 01/24/25 12:39 ORDERING PHYSICIAN: BIRD IVY MD PROCEDURE(s): RFEM - R FEMUR XRAY REASON: R medial thigh pain s/p fall ORDER NUMBER(s): [id number], ACCESSION NUMBER(s): [id number] CLINICAL INDICATION: R medial thigh pain s/p fall TECHNIQUE: 4 radiographic views of the right femur were obtained. Comparison: None FINDINGS/IMPRESSION: There is no evidence of acute fracture or dislocation. The visualized joint space is well maintained. The alignment is anatomical. There is no radiopaque foreign body. RING PHYSICIAN: BIRD IVY MD PROCEDURE(s): CX2CT - CHEST WITHOUT CONTRAST REASON: r chest wall pain s/p fall ORDER NUMBER(s): [id number], ACCESSION NUMBER(s): [id number] Procedure: CT CHEST WITHOUT CONTRAST Reason for study/Clinical History: r chest wall pain s/p fall Comparison Study: None available at time of dictation. TECHNIQUE: Multidetector CT of the chest was performed from the lung apices to the upper abdomen without the use of intravenous contract. Axial, coronal and sagittal multiplanar reformats were performed. Radiation Dose Information: CT Dose: CTDI volume is 6.57 mGy. Dose-length product is 266.01 mGy*cm The dose indicators for CT are the volume Computed Tomography (CT) Dose Index (CTDIvol) and the Dose Length Product (DLP), and are measured in units of mGy and mGy-cm, respectively. These indicators are not patient dose, but values generated from the CT scanner acquisition factors. The report includes radiation exposure data for exposures received during this examination. FINDINGS: Lower neck: Unremarkable. Lungs: No focal consolidation. No suspicious pulmonary nodule. Moderate centrilobular emphysema. Heart/Vascular Structures: Cardiomegaly. Coronary artery calcifications. Vascular calcifications of the aorta. Lymph Nodes: No adenopathy Pleura: No pleural effusion or significant pneumothorax. Musculoskeletal: Possible subtle nondisplaced fracture of the right anterior 3rd rib. Mildly displaced fracture of the right anterolateral 5th rib. Soft tissues: Normal. Upper abdomen: Post cholecystectomy. IMPRESSION: Possible subtle nondisplaced fracture of the right anterior 3rd rib. Mildly displaced fracture of the right anterolateral 5th rib. Radiation optimization: All CT scans at this facility use at least one of these dose optimization techniques: automated exposure control mA and/or kV adjustment per patient size (includes targeted exams where dose is matched to clinical indication) or iterative reconstruction. RING PHYSICIAN: BIRD IVY MD PROCEDURE(s): PL2CT - PELVIS WO CONTRAST REASON: r inguinal pain s/p fall ORDER NUMBER(s): [id number], ACCESSION NUMBER(s): [id number] EXAM: CT PELVIS WO CONTRAST INDICATION: r inguinal pain s/p fall EXAM DATE: 01/24/2025 12:19 PM COMPARISON: None TECHNIQUE: Multiple axial CT images of the pelvis were obtained using bone algorithm. Axial and coronal reformatting was done. Bone and soft tissue windows were reviewed. Radiation Dose Information: CT Dose: CTDI volume is 11.54 mGy. Dose-length product is 401.56 mGy*cm Findings: Lack of intravenous contrast limits evaluation of solid organs and vasculature. Minimally displaced fracture of the right superior pubic ramus. No evidence of dislocation, blastic, lytic, or osseous destructive lesions. Chronic fracture deformity of the left inferior pubic ramus. No superficial soft tissue abnormalities. The urinary bladder is well-distended and unremarkable. The distal ureters, uterus and bilateral adnexa are within normal limits. No dilatation of the visualized portion of the bowel. No intraluminal free air or free fluid. Impression: 1. Minimally displaced fracture of the right superior pubic ramus. X-Ray, Labs, Meds, VS Comment 84-year-old female with a history of hypertension, hyperlipidemia and diverticulitis brought in by family complaining of right-sided chest wall pain, right inguinal and right medial thigh pain status post fall last night Vitals unremarkable Exam remarkable for right-sided chest wall tenderness, right inguinal and medial thigh tenderness Rhythm strip independently interpreted by me: Sinus rhythm, rate 72, occasional PACs CT chest IMPRESSION: Possible subtle nondisplaced fracture of the right anterior 3rd rib. Mildly displaced fracture of the right anterolateral 5th rib. CT pelvis Impression: 1. Minimally displaced fracture of the right superior pubic ramus. Right femur x-rays FINDINGS/IMPRESSION: There is no evidence of acute fracture or dislocation. The visualized joint space is well maintained. The alignment is anatomical. There is no radiopaque foreign body. CBC unremarkable, metabolic panel remarkable for sodium 130, BNP and troponins negative, UA pending Patient treated with the following in the ED: [place] 10/325 mg p.o., 1 L 0.9 normal saline IV bolus On re-evaluation, patient states pain has improved. Vitals were stable. Plan is to admit the patient for pain control, orthopedic evaluation and electrolyte correction Time of 1ST Reevaluation: 12:40 Reevaluation 1ST: Unchanged Patient Education/Counseling: Diagnosis, Treatment Family Education/Counseling: Diagnosis, Treatment Departure 1 Departure Time of Disposition: 17:00 Impression: Primary Impression: Ribs, multiple fractures Qualified Codes: S22.41XA - Multiple fractures of ribs, right side, initial encounter for closed fracture Additional Impressions: Pubic ramus fracture Qualified Codes: S32.591A - Other specified fracture of right pubis, initial encounter for closed fracture Hyponatremia Disposition: ADMITTED INPATIENT Admit to: Med Surg Condition: Guarded Critical Care Note Critical Care Time?: No Stability Stability form required: No Heart Score Heart Score: Heart Score Response (Comments) Value History N/A 0 EKG N/A 0 Age N/A 0 Risk Factors N/A 0 Troponin N/A 0 Total 0 I personally scribed for BIRD IVY MD ([email or web address]) on 01/24/25 at 12:24. Electronically submitted by Jasmina Simpson ([email or web address]). I personally scribed for BIRD IVY MD ([email or web address]) on 01/24/25 at 13:16. Electronically submitted by Jasmina Simpson ([email or web address]). BIRD IVY MD Jan 24, 2025 12:24
[2025-01-24] MEDS: HYDROcodone-ACET 10/325MG TAB PO ONE (12:39)
--- NOTE | 2025-01-24 13:00 | DVH ---
CLINICAL INDICATION: R medial thigh pain s/p fall TECHNIQUE: 4 radiographic views of the right femur were obtained. Comparison: None FINDINGS/IMPRESSION: There is no evidence of acute fracture or dislocation. The visualized joint space is well maintained. The alignment is anatomical. There is no radiopaque foreign body.
--- NOTE | 2025-01-24 13:03 | DVH ---
Procedure: CT CHEST WITHOUT CONTRAST Reason for study/Clinical History: r chest wall pain s/p fall Comparison Study: None available at time of dictation. TECHNIQUE: Multidetector CT of the chest was performed from the lung apices to the upper abdomen with out the use of intravenous contract. Axial, coronal and sagittal multiplanar reformats were performed . Radiation Dose Information: CT Dose: CTDI volume is 6.57 mGy. Dose-length product is 266.01 mGy*cm The dose indicators for CT are the volume Computed Tomography (CT) Dose Index (CTDIvol) and the Dose Length Product (DLP), and are measured in units of mGy and mGy-cm, respectively. These indicators are not patient dose, but values generated from the CT scanner acquisition factors. The report includes radiation exposure data for exposures received during this examination. FINDINGS: Lower neck: Unremarkable. Lungs: No focal consolidation. No suspicious pulmonary nodule. Moderate centrilobular emphysema. Heart/Vascular Structures: Cardiomegaly. Coronary artery calcifications. Vascular calcifications of t he aorta. Lymph Nodes: No adenopathy Pleura: No pleural effusion or significant pneumothorax. Musculoskeletal: Possible subtle nondisplaced fracture of the right anterior 3rd rib. Mildly displace d fracture of the right anterolateral 5th rib. Soft tissues: Normal. Upper abdomen: Post cholecystectomy. IMPRESSION: Possible subtle nondisplaced fracture of the right anterior 3rd rib. Mildly displaced fracture of the right anterolateral 5th rib. Radiation optimization: All CT scans at this facility use at least one of these dose optimization gabe hniques: automated exposure control mA and/or kV adjustment per patient size (includes targeted exam s where dose is matched to clinical indication) or iterative reconstruction.
--- NOTE | 2025-01-24 13:06 | DVH ---
EXAM: CT PELVIS WO CONTRAST INDICATION: r inguinal pain s/p fall EXAM DATE: 01/24/2025 12:19 PM COMPARISON: None TECHNIQUE: Multiple axial CT images of the pelvis were obtained using bone algorithm. Axial and coron al reformatting was done. Bone and soft tissue windows were reviewed. Radiation Dose Information: CT Dose: CTDI volume is 11.54 mGy. Dose-length product is 401.56 mGy*cm Findings: Lack of intravenous contrast limits evaluation of solid organs and vasculature. Minimally displaced fracture of the right superior pubic ramus. No evidence of dislocation, blastic, lytic, or osseous destructive lesions. Chronic fracture deformit y of the left inferior pubic ramus. No superficial soft tissue abnormalities. The urinary bladder is well-distended and unremarkable. The distal ureters, uterus and bilateral adne xa are within normal limits. No dilatation of the visualized portion of the bowel. No intraluminal free air or free fluid. Impression: 1. Minimally displaced fracture of the right superior pubic ramus.
[2025-01-24 13:11] LABS: Basophils # (auto) 0 10 ^3/uL (0-0.2); Basophils % (auto) 0.2 % (0.0-2.0); Eosinophils # (auto) 0 10 ^3/uL (0-0.8); Hematocrit 40.1 % (36.0-46.0); Hemoglobin 13.5 g/dL (12.2-16.2); Lymphocytes # (auto) 0.8 10 ^3/uL (0.4-5.4); Lymphocytes % (auto) 7.6 % (10.0-50.0); Mean Corpuscular Hemoglobin 29.3 pg (28.0-32.0); Mean Corpuscular Hgb Conc. 33.8 g/dL (32.0-36.0); Mean Corpuscular Volume 86.8 fL (80.0-100.0); Monocytes # (auto) 0.7 10 ^3/uL (0-1.3); Monocytes % (auto) 7.1 % (0.0-12.0); Neutrophils # (auto) 8.7 10 ^3/uL (1.6-8.6); Neutrophils % (auto) 85.1 % (37.0-80.0); Nucleated Red Blood Cells % 0.1 %; Platelet Count (auto) 225 10^3/uL (140-450); Red Blood Cells 4.62 10^6/uL (4.0-5.20); Red Cell Distribution Width 14.8 % (11.8-14.3); White Blood Cell 10.3 10^3/uL (4.4-10.8)
[2025-01-24 13:14] LABS: Chloride 98 mmol/L (98-107)
[2025-01-24 13:15] LABS: Anion Gap 7 (5-15); Calcium 9.8 mg/dL (8.7-10.4); Carbon Dioxide 25 mmol/L (20-31)
[2025-01-24 13:16] LABS: Sodium 130 mmol/L (136-145)
[2025-01-24 13:20] LABS: BUN/Creatinine Ratio 14.3 (10.0-20.0); Blood Urea Nitrogen 10 mg/dL (9-23)
[2025-01-24 13:24] LABS: Glucose 124 mg/dL (74-106)
[2025-01-24] MEDS: SODIUM CHLORIDE 0.9% 1,000 ML IV ONE (17:15)
[2025-01-24] MEDS ORDERED: HYDROmorphone HCL 2 MG/ML VL/or syr IV PRN ×2 (19:15→20:30)
[2025-01-24] MEDS ORDERED: hydrALAZINE HCL 20 MG/ML VL IV PRN (19:15)
[2025-01-24] MEDS ORDERED: DOCUSATE SOD 100 MG CAP PO PRN (19:15)
[2025-01-24] MEDS ORDERED: LIDOCAINE 5% TOPICAL PATCH TOP PRN (19:15)
[2025-01-24] MEDS ORDERED: ACETAMINOPHEN 325 MG TAB PO PRN (19:15)
[2025-01-24] MEDS ORDERED: ONDANSETRON HCL 4 MG/2 ML VIAL IV PRN (19:15)
--- NOTE | 2025-01-24 19:20 | DVHHP2 ---
Admitting Diagnosis: Fall History of Present Illness 84Y F with PMHx HTN, HLD, vertigo, diverticulitis, and colectomy (2021), presents to ED for chief complaint fall. Pt reports rt sided lateral chest/rib pain and rt inguinal and medial thigh pain. Pt states she fell last night after getting up too fast and landed on her right side on grass. Pt denies LOC, head injury or dizziness. Pt reports difficulty weight-bearing on the right lower extremity due to pain. Pt took a Tylenol-codeine medication this morning at 0730 but symptoms did not improve. No other symptoms reported. PAST MEDICAL HISTORY: High Lipids, HTN Past Medical History (Other): Diverticulitis Surgical History (Other): Colectomy 2021 COLD HEADER History: Denies all COLD HEADER Hx Family History Family History: Unknown Social History Smoker: Non-Smoker, Secondhand Alcohol: Denies ETOH Use Drugs: Denies Drug Use Lives In: Home Patient Family History: Alzheimer's disease G8 MOTHER Chronic obstructive pulmonary disease G8 FATHER Allergies: Coded Allergies: Gabapentin (Verified Allergy, Unknown, 11/17/23) Home Meds Active Scripts Amlodipine Besylate (Amlodipine Besylate) 5 Mg Tab, 1 TAB PO DAILY for 30 Days, #30 TAB 5 Refills Prov:CATHERINE WILLIAMSON RESIDENT 07/07/24 Lisinopril (Lisinopril) 10 Mg Tab, 10 MG PO DAILY for 30 Days, #30 TAB Prov:VINNY WILLIAMSONE RESIDENT 07/07/24 Metronidazole (Metronidazole) 500 Mg Tab, 500 MG PO TID for 10 Days, #30 TAB Prov:[facility]IL[facility]NA [facility] 07/07/24 Dicyclomine Hcl (BENTYL CAPSULE) 10 Mg Cp, 1 CAP PO Q6HR PRN, #20 CAP 0 Refills Prov:SHIVANI LAMAR MD 03/15/24 Acetaminophen (Acetaminophen) 500 Mg Tab, 500 MG PO Q4HP PRN, #30 TAB Prov:ANTONIO KOROMA PAC 08/21/23 Reported Medications Omeprazole (Gnp Omeprazole) 20 Mg Tab, 20 MG PO AC, TAB 07/18/24 Zolpidem Tartrate (Ambien) 10 Mg Tab, 5 MG PO HS, TAB 07/18/24 Eszopiclone (Lunesta) 1 Mg Tab, 1 MG PO, TAB 07/06/24 Current Medications Current Medications Medications (Trade) Dose Ordered Sig/Thee Route PRN Reason Start Time Stop Time Status Last Admin Sodium Chloride (Saline Lock Ns) 10 ml Q8HR IV 01/24/25 22:00 UNV Docusate Sodium (Colace Capsule) 100 mg BIDPRN PRN PO FOR CONSTIPATION 01/24/25 19:15 UNV Acetaminophen (Tylenol Tablet) 650 mg Q6HP PRN PO PAIN SCALE 1-3 OR TEMP>100.4 01/24/25 19:15 UNV Acetaminophen/ Hydrocodone Bitart ([place] 5/325MG Tab) 1 tab Q4HP PRN PO MODERATE PAIN (4-6 PAIN SCALE) 01/24/25 19:15 UNV Hydromorphone HCl (Dilaudid Injection) 0.5 mg Q4HP PRN IV SEVERE PAIN (7-10 PAIN SCALE) 01/24/25 19:15 UNV Ondansetron HCl (Zofran) 4 mg Q4HP PRN IV NAUSEA / VOMITING 01/24/25 19:15 UNV Lidocaine (Lidoderm 5% Topical Patch) 1 patch DAILY PRN TOP right rib pain 01/24/25 19:15 UNV Enoxaparin Sodium (Lovenox) 40 mg DAILY SC 01/25/25 10:00 UNV Amlodipine Besylate (Norvasc Tablet) 5 mg DAILY PO 01/25/25 10:00 UNV Patient Own Medication 10 mg DAILY PO 01/25/25 10:00 UNV Patient Own Medication 20 mg AC PO 01/25/25 07:00 UNV Patient Own Medication 5 mg HS PO 01/24/25 22:00 UNV Vital Signs Vital Signs Date Time Temp Pulse Resp B/P (MAP) Pulse Ox O2 Delivery O2 Flow Rate FiO2 01/24/25 18:41 82 17 95 Room Air* 0 21 01/24/25 18:00 187/52 (97) 01/24/25 14:21 98.2 98.2 Physical Exam Generally 84 years old woman, well nourished well developed. Mild distress HEENT-atraumatic, normocephalic Heart-regular rate and rhythm Lungs clear to auscultate bilaterally Normal soft nontender nondistended Musculoskeletal-right hip pain with movement, right rib pain with a deep breath. No cyanosis or edema Neuro-AO x3, no focal deficits Results Labs Test 01/24/25 13:44 01/24/25 12:50 01/24/25 11:45 Range/Units Troponin I High Sensitivity 3 L </=34 ng/L White Blood Count 10.3 4.4-10.8 10^3/uL Red Blood Count 4.62 4.0-5.20 10^6/uL Hemoglobin 13.5 12.2-16.2 g/dL Hematocrit 40.1 36.0-46.0 % Mean Corpuscular Volume 86.8 80.0-100.0 fL Mean Corpuscular Hemoglobin 29.3 28.0-32.0 pg Mean Corpuscular Hemoglobin Concent 33.8 32.0-36.0 g/dL Red Cell Distribution Width 14.8 H 11.8-14.3 % Platelet Count 225 140-450 10^3/uL Mean Platelet Volume 8.3 6.9-10.8 fL Neutrophils (%) (Auto) 85.1 H 37.0-80.0 % Lymphocytes (%) (Auto) 7.6 L 10.0-50.0 % Monocytes (%) (Auto) 7.1 0.0-12.0 % Eosinophils (%) (Auto) 0.0 0.0-7.0 % Basophils (%) (Auto) 0.2 0.0-2.0 % Neutrophils # (Auto) 8.7 H 1.6-8.6 10 ^3/uL Lymphocytes # (Auto) 0.8 0.4-5.4 10 ^3/uL Monocytes # (Auto) 0.7 0-1.3 10 ^3/uL Eosinophils # (Auto) 0 0-0.8 10 ^3/uL Basophils # (Auto) 0 0-0.2 10 ^3/uL Nucleated Red Blood Cells 0.1 % Sodium Level 130 L 136-145 mmol/L Potassium Level 4.0 3.5-5.1 mmol/L Chloride Level 98 98-107 mmol/L Carbon Dioxide Level 25 20-31 mmol/L Anion Gap 7 5-15 Blood Urea Nitrogen 10 9-23 mg/dL Creatinine 0.70 0.550-1.02 mg/dL Glomerular Filtration Rate Calc 86 >90 mL/min BUN/Creatinine Ratio 14.3 10.0-20.0 Serum Glucose 124 H 74-106 mg/dL Calcium Level 9.8 8.7-10.4 mg/dL B-Type Natriuretic Peptide 87.26 0-100 pg/mL POC Glucose 140 H 70-106 mg/dl Primary Diagnosis Right superior pelvic rami fracture Right wrist fracture Plan CT shows right rib fracture CT abdomen and pelvis shows fracture of right superior rami IV fluids Pain control Bowel regimen Antiemetic Orthopedic consult for further recommendation PT evaluate for possible placement Full code Lovenox for DVT prophylaxis Regular diet No GI prophylaxis needed Plan discussed with: Patient Problems List: (1) Ribs, multiple fractures Status: Acute (2) Pubic ramus fracture Status: Acute Date of Service: Jan 24, 2025 Billing Provider: VERONICA VELA MD Common Visit Codes: [id number] INP/OBS CARE (MOD) VERONICA VELA MD Jan 24, 2025 19:20
[2025-01-24] MEDS: LACTATED RINGER'S 1,000 ML IV ONE (20:30)
[2025-01-24] MEDS: HYDROcodone-ACET 5/325MG TAB PO PRN (20:32)
[2025-01-24 20:36] LABS: INR 1.03 (0.9-1.15); Prothrombin Time 10.9 sec (9.3-11.8)
[2025-01-24] MEDS: SODIUM CHLOR 0.9% PF (SALINE LOCK) 10ML VIAL/SYR IV SCH (21:59)
[2025-01-24] MEDS ORDERED: ACET300T58 PO (22:42)
[2025-01-24] MEDS ORDERED: SUCR1SUS26 PO (22:45)
[2025-01-24] MEDS: ZOLPIDEM TARTRATE 5 MG TAB PO PRN (22:51)
[2025-01-25] VITALS (7 sets, daily range): BP systolic 140–185; BP diastolic 40–56; PULSE 71–78; RESP 16–18; TEMP 37.1; O2SAT 91–94
[2025-01-25 00:57] LABS: Urine Bacteria FEW /hpf (None Seen); Urine Blood Negative /uL (Negative); Urine Clarity Clear (Clear); Urine Color Light-Yellow (Yellow); Urine Protein, UAD Negative (Negative); Urine Specific Gravity 1.008 (1.001-1.035); Urine Squamous Epithelial Cell FEW /hpf (<5); Urine Urobilinogen Normal (Negative); Urine WBC 21 /HPF (0-5); Urine pH 6.5 (5.0-9.0)
[2025-01-25 06:36] LABS: Basophils # (auto) 0 10 ^3/uL (0-0.2); Basophils % (auto) 0.4 % (0.0-2.0); Eosinophils # (auto) 0 10 ^3/uL (0-0.8); Eosinophils % (auto) 0.2 % (0.0-7.0); Hematocrit 35.4 % (36.0-46.0); Hemoglobin 12.1 g/dL (12.2-16.2); Lymphocytes # (auto) 1.1 10 ^3/uL (0.4-5.4); Lymphocytes % (auto) 12.6 % (10.0-50.0); Mean Corpuscular Hemoglobin 29.6 pg (28.0-32.0); Mean Corpuscular Hgb Conc. 34.2 g/dL (32.0-36.0); Mean Corpuscular Volume 86.4 fL (80.0-100.0); Monocytes # (auto) 0.8 10 ^3/uL (0-1.3); Monocytes % (auto) 8.9 % (0.0-12.0); Neutrophils % (auto) 77.9 % (37.0-80.0); Platelet Count (auto) 178 10^3/uL (140-450); Red Cell Distribution Width 14.8 % (11.8-14.3)
[2025-01-25 06:53] LABS: Alanine Aminotransferase 13 U/L (7-40); Alkaline Phosphatase 75 U/L (46-116); Anion Gap 7 (5-15); Aspartate Aminotransferase 21 U/L (13-40); BUN/Creatinine Ratio 11.9 (10.0-20.0); Calcium 8.8 mg/dL (8.7-10.4); Carbon Dioxide 23 mmol/L (20-31); Chloride 102 mmol/L (98-107); Potassium 3.8 mmol/L (3.5-5.1)
[2025-01-25 06:54] LABS: Albumin 3.9 g/dL (3.2-4.8)
[2025-01-25 07:00] LABS: Bilirubin, Total 1.3 mg/dL (0.2-1.0); Blood Urea Nitrogen 7 mg/dL (9-23); Glucose 107 mg/dL (74-106); Sodium 132 mmol/L (136-145)
--- NOTE | 2025-01-25 08:34 | DVHINCON2 ---
Date of service: Jan 25, 2025 Reason for Consultation Right superior pubic rami fracture, right 3rd and 5th rib fracture History of Present Illness Patient is a pleasant 84-year-old female status post mechanical fall and landed on her right side. Patient comes in plenty of right chest pain as it was right groin pain. Patient denies any current shortness of breath abdominal pain nausea vomiting diarrhea. Patient was able to ambulate however with pain. No new numbness or tingling. Past Medical History PAST MEDICAL HISTORY: High Lipids, HTN Past Medical History (Other): Diverticulitis Surgical History (Other): Colectomy 2021 Family History: Alzheimer's disease G8 MOTHER Chronic obstructive pulmonary disease G8 FATHER Allergies: Coded Allergies: Gabapentin (Verified Allergy, Unknown, 11/17/23) Home Meds Active Scripts Amlodipine Besylate (Amlodipine Besylate) 5 Mg Tab, 1 TAB PO DAILY for 30 Days, #30 TAB 5 Refills Prov:CATHERINE WILLIAMSON RESIDENT 07/07/24 Lisinopril (Lisinopril) 10 Mg Tab, 10 MG PO DAILY for 30 Days, #30 TAB Prov:CATHERINE WILLIAMSON RESIDENT 07/07/24 Metronidazole (Metronidazole) 500 Mg Tab, 500 MG PO TID for 10 Days, #30 TAB Prov:CATHERINE WILLIAMSON RESIDENT 07/07/24 Dicyclomine Hcl (BENTYL CAPSULE) 10 Mg Cp, 1 CAP PO Q6HR PRN, #20 CAP 0 Refills Prov:SHIVANI LAMAR MD 03/15/24 Acetaminophen (Acetaminophen) 500 Mg Tab, 500 MG PO Q4HP PRN, #30 TAB Prov:ANTONIO KOROMA PAC 08/21/23 Reported Medications Sucralfate (CARAFATE SUSP) 1 Gm/10 Ml Ss, 10 ML PO BID, #600 ML 1 Refill 01/24/25 Acetaminophen W/ Codeine (Tylenol #4 W/Codeine) 1 Tab Tb, 1 TAB PO, TAB 01/24/25 Omeprazole (Gnp Omeprazole) 20 Mg Tab, 20 MG PO AC, TAB 07/18/24 Zolpidem Tartrate (Ambien) 10 Mg Tab, 5 MG PO HS, TAB 07/18/24 Eszopiclone (Lunesta) 1 Mg Tab, 1 MG PO, TAB 07/06/24 Current Medications Current Medications Medications (Trade) Dose Ordered Sig/Thee Route PRN Reason Start Time Stop Time Status Last Admin Sodium Chloride (Saline Lock Ns) 10 ml Q8HR IV 01/24/25 22:00 01/25/25 05:32 Docusate Sodium (Colace Capsule) 100 mg BIDPRN PRN PO FOR CONSTIPATION 01/24/25 19:15 Acetaminophen (Tylenol Tablet) 650 mg Q6HP PRN PO PAIN SCALE 1-3 OR TEMP>100.4 01/24/25 19:15 Acetaminophen/ Hydrocodone Bitart ([place] 5/325MG Tab) 1 tab Q4HP PRN PO MODERATE PAIN (4-6 PAIN SCALE) 01/24/25 19:15 01/25/25 03:10 Hydromorphone HCl (Dilaudid Injection) 0.5 mg Q4HP PRN IV SEVERE PAIN (7-10 PAIN SCALE) 01/24/25 19:15 01/24/25 20:23 DC Ondansetron HCl (Zofran) 4 mg Q4HP PRN IV NAUSEA / VOMITING 01/24/25 19:15 Lidocaine (Lidoderm 5% Topical Patch) 1 patch DAILY PRN TOP right rib pain 01/24/25 19:15 Enoxaparin Sodium (Lovenox) 40 mg DAILY SC 01/25/25 10:00 Amlodipine Besylate (Norvasc Tablet) 5 mg DAILY PO 01/25/25 10:00 Lisinopril (Zestril Tablet) 10 mg DAILY PO 01/25/25 10:00 Omeprazole (Omeprazole/ Sodium Bicarbo 20-1680 Mg) 20 mg DAILY PO 01/25/25 10:00 Zolpidem Tartrate (Ambien) 5 mg HS PRN PO FOR INSOMNIA 01/24/25 20:30 01/24/25 22:51 Hydralazine HCl (Apresoline Injection) 10 mg Q6H PRN IV SBP > 165 01/24/25 19:15 Hydromorphone HCl (Dilaudid Injection) 0.5 mg Q4HP PRN IV SEVERE PAIN (7-10 PAIN SCALE) 01/24/25 20:30 Review of Systems Ten point review of systems is negative except per HPI Vital Signs Vital Signs Date Time Temp Pulse Resp B/P (MAP) Pulse Ox O2 Delivery O2 Flow Rate FiO2 01/25/25 05:30 98.8 72 18 152/49 (83) 91 98.8 01/24/25 22:08 Room Air* 0 21 Physical Exam No apparent distress excellent oriented x3 Verbal and well-developed Bilateral upper and lower extremity full range of motion with pain on her right side has expected Sensation intact to light touch L4-S1, median/radial/ulnar nerve distribution Labs/Diagnostic Data Labs Test 01/25/25 05:47 01/25/25 00:37 01/24/25 19:27 01/24/25 13:44 Range/Units White Blood Count 9.0 4.4-10.8 10^3/uL Red Blood Count 4.10 4.0-5.20 10^6/uL Hemoglobin 12.1 L 12.2-16.2 g/dL Hematocrit 35.4 #L 36.0-46.0 % Mean Corpuscular Volume 86.4 80.0-100.0 fL Mean Corpuscular Hemoglobin 29.6 28.0-32.0 pg Mean Corpuscular Hemoglobin Concent 34.2 32.0-36.0 g/dL Red Cell Distribution Width 14.8 H 11.8-14.3 % Platelet Count 178 140-450 10^3/uL Mean Platelet Volume 8.5 6.9-10.8 fL Neutrophils (%) (Auto) 77.9 37.0-80.0 % Lymphocytes (%) (Auto) 12.6 10.0-50.0 % Monocytes (%) (Auto) 8.9 0.0-12.0 % Eosinophils (%) (Auto) 0.2 0.0-7.0 % Basophils (%) (Auto) 0.4 0.0-2.0 % Neutrophils # (Auto) 7.0 1.6-8.6 10 ^3/uL Lymphocytes # (Auto) 1.1 0.4-5.4 10 ^3/uL Monocytes # (Auto) 0.8 0-1.3 10 ^3/uL Eosinophils # (Auto) 0 0-0.8 10 ^3/uL Basophils # (Auto) 0 0-0.2 10 ^3/uL Nucleated Red Blood Cells 0.0 % Sodium Level 132 L 136-145 mmol/L Potassium Level 3.8 3.5-5.1 mmol/L Chloride Level 102 98-107 mmol/L Carbon Dioxide Level 23 20-31 mmol/L Anion Gap 7 5-15 Blood Urea Nitrogen 7 L 9-23 mg/dL Creatinine 0.59 0.550-1.02 mg/dL Glomerular Filtration Rate Calc 89 >90 mL/min BUN/Creatinine Ratio 11.9 10.0-20.0 Serum Glucose 107 H 74-106 mg/dL Calcium Level 8.8 8.7-10.4 mg/dL Total Bilirubin 1.3 H 0.2-1.0 mg/dL Aspartate Amino Transferase (AST) 21 13-40 U/L Alanine Aminotransferase (ALT) 13 7-40 U/L Alkaline Phosphatase 75 46-116 U/L Total Protein 6.0 5.7-8.2 g/dL Albumin 3.9 3.2-4.8 g/dL Urine Color Light-yellow Yellow Urine Clarity Clear Clear Urine pH 6.5 5.0-9.0 Urine Specific [place] 1.008 1.001-1.035 Urine Protein Negative Negative Urine Ketones Negative Negative Urine Blood Negative Negative /uL Urine Nitrite Negative Negative Urine Bilirubin Negative Negative Urine Urobilinogen Normal Negative mg/dL Urine Leukocyte Esterase 2+ Negative /uL Urine RBC 2 0 - 4 /hpf Urine Microscopic WBC 21 H 0-5 /HPF Urine Squamous Epithelial Cells Few <5 /hpf Urine Bacteria Few H None Seen /hpf Urine Glucose Normal Normal mg/dL Prothrombin Time 10.9 9.3-11.8 sec Prothrombin Time INR 1.03 0.9-1.15 Troponin I High Sensitivity 3 L </=34 ng/L Test 01/24/25 12:50 01/24/25 11:45 Range/Units B-Type Natriuretic Peptide 87.26 0-100 pg/mL POC Glucose 140 H 70-106 mg/dl Plan/Recommendation 84-year-old female status post mechanical fall with right 3rd and 5th rib fracture, right superior pubic rami fracture 1. Weightbearing as tolerated with walker 2. Pain control 3. Incentive spirometer 4. DVT prophylaxis 5. DC planning for home-follow up in [facility] in 2 weeks Plan discussed with: Patient JYOTI GRAHAM MD Jan 25, 2025 08:34
[2025-01-25] MEDS: LISINOPRIL 5 MG TAB PO SCH (09:46)
[2025-01-25] MEDS: amLODIPine BESYLATE 5 MG TAB PO SCH (09:47)
[2025-01-25] MEDS: ENOXAPARIN SOD 40 MG/0.4 ML SYRINGE SC SCH (09:48)
[2025-01-25] MEDS: LIDOCAINE 5% TOPICAL PATCH TOP SCH (09:59)
[2025-01-25] MEDS: OMEPRAZOLE-SOD BICARB 20 MG POWDER PO SCH (10:16)
[2025-01-25] MEDS ORDERED: APIX2.5T PO (15:44)
[2025-01-25] MEDS ORDERED: TRAM-626 PO (15:44)
--- NOTE | 2025-01-25 15:53 | DVHDS2 ---
Discharge Summary Date of Admission Jan 24, 2025 at 19:01 Date of Discharge: Jan 25, 2025 Admitting Diagnosis Minimally displaced fracture of the right superior pubic ramus Labs/Diagnostic Data: Laboratory Results Test 01/25/25 05:47 01/25/25 00:37 01/24/25 19:27 01/24/25 13:44 White Blood Count 9.0 10^3/uL (4.4-10.8) Red Blood Count 4.10 10^6/uL (4.0-5.20) Hemoglobin 12.1 g/dL (12.2-16.2) Hematocrit 35.4 % (36.0-46.0) Mean Corpuscular Volume 86.4 fL (80.0-100.0) Mean Corpuscular Hemoglobin 29.6 pg (28.0-32.0) Mean Corpuscular Hemoglobin Concent 34.2 g/dL (32.0-36.0) Red Cell Distribution Width 14.8 % (11.8-14.3) Platelet Count 178 10^3/uL (140-450) Mean Platelet Volume 8.5 fL (6.9-10.8) Neutrophils (%) (Auto) 77.9 % (37.0-80.0) Lymphocytes (%) (Auto) 12.6 % (10.0-50.0) Monocytes (%) (Auto) 8.9 % (0.0-12.0) Eosinophils (%) (Auto) 0.2 % (0.0-7.0) Basophils (%) (Auto) 0.4 % (0.0-2.0) Neutrophils # (Auto) 7.0 10 ^3/uL (1.6-8.6) Lymphocytes # (Auto) 1.1 10 ^3/uL (0.4-5.4) Monocytes # (Auto) 0.8 10 ^3/uL (0-1.3) Eosinophils # (Auto) 0 10 ^3/uL (0-0.8) Basophils # (Auto) 0 10 ^3/uL (0-0.2) Nucleated Red Blood Cells 0.0 % Sodium Level 132 mmol/L (136-145) Potassium Level 3.8 mmol/L (3.5-5.1) Chloride Level 102 mmol/L (98-107) Carbon Dioxide Level 23 mmol/L (20-31) Anion Gap 7 (5-15) Blood Urea Nitrogen 7 mg/dL (9-23) Creatinine 0.59 mg/dL (0.550-1.02) Glomerular Filtration Rate Calc 89 mL/min (>90) BUN/Creatinine Ratio 11.9 (10.0-20.0) Serum Glucose 107 mg/dL (74-106) Calcium Level 8.8 mg/dL (8.7-10.4) Total Bilirubin 1.3 mg/dL (0.2-1.0) Aspartate Amino Transferase (AST) 21 U/L (13-40) Alanine Aminotransferase (ALT) 13 U/L (7-40) Alkaline Phosphatase 75 U/L (46-116) Total Protein 6.0 g/dL (5.7-8.2) Albumin 3.9 g/dL (3.2-4.8) Urine Color Light-yellow (Yellow) Urine Clarity Clear (Clear) Urine pH 6.5 (5.0-9.0) Urine Specific [place] 1.008 (1.001-1.035) Urine Protein Negative (Negative) Urine Ketones Negative (Negative) Urine Blood Negative /uL (Negative) Urine Nitrite Negative (Negative) Urine Bilirubin Negative (Negative) Urine Urobilinogen Normal mg/dL (Negative) Urine Leukocyte Esterase 2+ /uL (Negative) Urine RBC 2 /hpf (0 - 4) Urine Microscopic WBC 21 /HPF (0-5) Urine Squamous Epithelial Cells Few /hpf (<5) Urine Bacteria Few /hpf (None Seen) Urine Glucose Normal mg/dL (Normal) Prothrombin Time 10.9 sec (9.3-11.8) Prothrombin Time INR 1.03 (0.9-1.15) Troponin I High Sensitivity 3 ng/L (</=34) Test 01/24/25 12:50 01/24/25 11:45 B-Type Natriuretic Peptide 87.26 pg/mL (0-100) POC Glucose 140 mg/dl (70-106) Other Laboratory Tests 01/25/25 05:47 Brief Hx & Hospital Course: Patient is a pleasant 84-year-old female status post mechanical fall and landed on her right side. Patient comes in plenty of right chest pain as it was right groin pain. Patient denies any current shortness of breath abdominal pain nausea vomiting diarrhea. Patient was able to ambulate however with pain. No new numbness or tingling. Patient was seen in Ortho Consult, no surgery indicated, must use an Incentive Spirometer at home to prevent pneumonia, I spoke with the patients daughter over the phone, patient has had about 5 recent falls, therefore, patient will not be started on blood thinners. Patient self catheterizes at home, therefore we will discharge with mejias. Patient has an appt with Urology clinic. Operations or Procedures EXAM: CT PELVIS WO CONTRAST INDICATION: r inguinal pain s/p fall EXAM DATE: 01/24/2025 12:19 PM COMPARISON: None TECHNIQUE: Multiple axial CT images of the pelvis were obtained using bone algorithm. Axial and coronal reformatting was done. Bone and soft tissue windows were reviewed. Radiation Dose Information: CT Dose: CTDI volume is 11.54 mGy. Dose-length product is 401.56 mGy*cm Findings: Lack of intravenous contrast limits evaluation of solid organs and vasculature. Minimally displaced fracture of the right superior pubic ramus. No evidence of dislocation, blastic, lytic, or osseous destructive lesions. Chronic fracture deformity of the left inferior pubic ramus. No superficial soft tissue abnormalities. The urinary bladder is well-distended and unremarkable. The distal ureters, uterus and bilateral adnexa are within normal limits. No dilatation of the visualized portion of the bowel. No intraluminal free air or free fluid. Impression: 1. Minimally displaced fracture of the right superior pubic ramus. Condition at Discharge: Poor Final Diagnosis/Problems List Minimally displaced fracture of the right superior pubic ramus Rib Fracture- Incentive spirometer Discharge Disposition: Home Discharge Instruct/Medications Diet: Regular Activity: No Restrictions, As Tolerated Follow Up/Referral: [facility] Urology Discharge Statement: "Patient was advised to return to the ER or call 911 if any headaches, dizziness, shortness of breath, chest pain, abdominal pain, bleeding, fevers, or worsening of medical condition. Patient was counseled about treatment plan, medications, possible side effects, patientverbalized understanding. All questions were answered to the best of my ability. This discharge took greater then 30 minutes in planning, reviewing documentation, counseling the patient, and discussing with other team members." ASSESSMENT ASSESSMENT Assessment Date of Service: Jan 25, 2025 Billing Provider: MARJORIE LUCIO MD Common Visit Codes: 75213-KBA/OBS DISCH DAY >30min MARJORIE LUCIO MD Jan 25, 2025 15:53
[2025-01-25] MEDS: cefTRIAXone 2GM/50ML D5W 50 ML IV ONE (17:24)
== END 2025-01-25 20:00 | disposition home health service (06) | DRG 184 ==
LOC: ER 11:37 → OVERFLOW 19:01 → WEST WING 21:40
PROVIDERS: ADMIT Internal Medicine; ATTEND Internal Medicine
DX: S22.41XA Multiple fractures of ribs, right side, initial encounter for closed fracture (principal); E87.1 Hypo-osmolality and hyponatremia; S32.591A Other specified fracture of right pubis, initial encounter for closed fracture; S62.101A Fracture of unspecified carpal bone, right wrist, initial encounter for closed fracture; I10 Essential (primary) hypertension; E78.5 Hyperlipidemia, unspecified; W18.39XA Other fall on same level, initial encounter; J44.9 Chronic obstructive pulmonary disease, unspecified; Z88.8 Allergy status to other drugs, medicaments and biological substances; Z79.899 Other long term (current) drug therapy; Z79.1 Long term (current) use of non-steroidal anti-inflammatories (NSAID); Z90.49 Acquired absence of other specified parts of digestive tract; Y93.89 Activity, other specified; Y92.89 Other specified places as the place of occurrence of the external cause; Y99.8 Other external cause status; Z82.5 Family history of asthma and other chronic lower respiratory diseases; Z82.0 Family history of epilepsy and other diseases of the nervous system; Z79.891 Long term (current) use of opiate analgesic; Z81.8 Family history of other mental and behavioral disorders
CPT/HCPCS: 36415; 71250; 72192; 80048; 80053; 81001; 82962; 83880; 84484; 85025; 85610; 93005; 97163; G0378